=== PATIENT | female | born 1985 | race Caucasian/White ===

== ENCOUNTER 2018-01-10 12:00 | Outpatient (RCR) | payer OTHER, MEDICAID, SELFPAY ==
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
--- NOTE | 2017-09-07 15:15 | PT.OPPOC ---
Current Diagnoses Sacrococcygeal disorders, not elsewhere classified (09/07/17) Radiculopathy, lumbar region (09/07/17) Weakness (09/07/17) Provider Visit Care Team Role Provider Type Marisel Agudelo MD Attending Provider Physician Family Provider Primary Care Provider Specialty: Family Practice Address: [address] [place] [address], [id number] Email: Plan Of Care PT-OP-T Assessment and Plan Start: 09/07/17 18:17 Freq: Status: Active Protocol: Document 09/07/17 15:15 DCW (Rec: 09/08/17 12:44 DCW [id number]) Physical Therapy Assessment Rehab Potential Rehabilitation Potential Excellent Evaluation Complexity Number of Personal Factors/Comorbidities 1-2 Number of Body Systems Impaired 1-2 Clinical Presentation at Evaluation Stable Impairments Impairments Activity Tolerance Functional Activities Functional Mobility Posture Strength Tone Goals Four Impairment Core Strength Short Term Goal (STG) Pt to display 4/5 TrA strength STG Duration 10/05/17 Carousel Operator Goal (LTG) Pt to display 5/5 TrA strength LTG Duration 11/16/17 Three Impairment Pt lacks home exercise program Short Term Goal (STG) Pt independent and compliant with home exercise program STG Duration 10/05/17 Two Impairment Muscle Tone Short Term Goal (STG) Pt to display minimal tone in bilateral Piriformis STG Duration 10/05/17 One Impairment Activity Participation Usp Goal (LTG) Pt to return to lifting weights at gym with no complaints of instability LTG Duration 11/16/17 Assessment Summary Assessment Pt presents with signs and symptoms of core weakness and SI instability. Pt should progress quickly due to her not currently experiencing any low back pain, and should benefit from skilled therapy focusing on improving core strength, low back and SI stabilization, and body builder apprentice/posture training. Physical Therapy Plan Frequency and Duration Frequency of Treatment 2x/Week Duration of Treatment 10 weeks Plan of Care Start Date 09/07/17 Plan of Care End Date 11/16/17 Therapeutic Interventions Therapeutic Interventions Aquatic Therapy Home Exercise Program Joint Mobilizations Manual Therapy Neuromuscular Re-education Patient/Caregiver Education Self-Care/Home Management Soft Tissue Mobilization Therapeutic Activities Therapeutic Exercises Modalities Cold Pack/Ice Massage Electric Stimulation Hot Packs Ultrasound Next Visit Focus/Plan Next Note Type Treatment Note Next Visit Plan Core strengthening, SI stability,Posture training Plan of Care Dates Plan of Care Start Date 09/07/17 Plan of Care End Date 11/16/17 Please Sign and Return: I have reviewed this Plan of Care and certify that the skilled therapy services above are required to meet the patient?s needs. Physician Signature Date Printed Name and Credentials Clinical Instructor Signature Printed Name and Credentials
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
--- NOTE | 2017-12-03 15:24 | PT.OPPOC ---
Current Diagnoses Radiculopathy, lumbar region (12/03/17) Provider Visit Care Team Role Provider Type Marisel Agudelo MD Attending Provider Physician Family Provider Primary Care Provider Specialty: Family Practice Address: [address] [place] [address], [facility] Email: Plan Of Care PT-OP-T Assessment and Plan Start: 09/07/17 18:17 Freq: Status: Active Protocol: Document 12/03/17 09:48 LRN (Rec: 12/03/17 10:46 LRN [id number]) Physical Therapy Assessment Rehab Potential Rehabilitation Potential Excellent Evaluation Complexity Number of Personal Factors/Comorbidities 1-2 Number of Body Systems Impaired 1-2 Clinical Presentation at Evaluation Stable Impairments Impairments Activity Tolerance Strength Tone Goals Four Impairment Core Strength Short Term Goal (STG) Pt to display 4/5 TrA strength STG Duration GOAL MET Wellness Director Goal (LTG) Pt to display 5/5 TrA strength LTG Duration 02/04/18 Three Impairment Pt lacks home exercise program Short Term Goal (STG) Pt independent and compliant with home exercise program STG Duration 02/04/18 Two Impairment Muscle Tone Short Term Goal (STG) Pt to display minimal tone in bilateral Piriformis STG Duration GOAL MET One Impairment Activity Participation Short Term Goal (STG) Pt able to work without onset of back pain. Wellness Director Goal (LTG) Pt to return to lifting weights at gym with no complaints of instability LTG Duration 02/04/18 Assessment Summary Assessment Pt presents with much improved abdominal strength and no complaints of pain, only stiffness and a feeling of pressure. She is able to perform kettle ball lifting ex 's at home and can perform a lift movement. She has returned to gym ex's of yoga and pilates. 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 She is exercising and walking daily. Her biggest limitation is prolonged sitting tolerance. 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 Physical Therapy Plan Frequency and Duration Frequency of Treatment 2x/Week Plan of Care Start Date 12/03/17 Plan of Care End Date 02/04/18 Therapeutic Interventions Therapeutic Interventions Aquatic Therapy Home Exercise Program Joint Mobilizations Manual Therapy Neuromuscular Re-education Patient/Caregiver Education Self-Care/Home Management Soft Tissue Mobilization Therapeutic Activities Therapeutic Exercises Modalities Cold Pack/Ice Massage Electric Stimulation Hot Packs Ultrasound Next Visit Focus/Plan Next Note Type Treatment Note Next Visit Plan Sacral mob to correct a stuck R side, progress core strengthening and stabilization, and body mechanics training for her job . Plan of Care Dates Plan of Care Start Date 12/03/17 Plan of Care End Date 02/04/18 Please Sign and Return: I have reviewed this Plan of Care and certify that the skilled therapy services above are required to meet the patient?s needs. Physician Signature Date Printed Name and Credentials Clinical Instructor Signature Printed Name and Credentials
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
== END 2018-03-30 08:42 ==
LOC: PHYS 12:00
PROVIDERS: Family Provider Family Medicine; PCP Family Medicine; Visit Provider Family Medicine
DX: M54.16 Radiculopathy, lumbar region (principal)
CPT/HCPCS: 97110; 97112; 97140; 97161; 97530; 97535

== ENCOUNTER → 2023-12-08 12:47 | Outpatient (CLI) | payer OTHER, SELFPAY ==
--- NOTE | 2023-12-08 12:51 | DI.RAD.S_ITS ---
PROCEDURE: XR CHEST 2V INDICATIONS: Shortness of breath TECHNIQUE: 2 views of the chest were acquired. COMPARISON: None. FINDINGS: Surgical changes and devices: None. Lungs and pleura: Lungs are clear. No pleural effusions or pneumothorax. Mediastinum: Mediastinal contours are normal. Heart size is normal. Bones and chest wall: No suspicious bony abnormalities. Soft tissues appear unremarkable. IMPRESSION: No acute cardiopulmonary abnormality is seen. Approved by: Jason Neves M.D. on 12/08/2023 at 13:34
== END ==
PROVIDERS: Family Provider Family Medicine; PCP Family Medicine; Referring Provider Family Medicine; Visit Provider Family Medicine
DX: R06.02 Shortness of breath (principal)
CPT/HCPCS: 71046

== ENCOUNTER → 2024-03-23 14:31 | Outpatient (CLI) | payer OTHER, SELFPAY ==
--- NOTE | 2024-03-23 | DI.RAD.S_ITS ---
PROCEDURE: XR CHEST 2V INDICATIONS: SHORTNESS OF BREATH TECHNIQUE: 2 views of the chest were acquired. COMPARISON: [facility], , XR CHEST 2V, 12/08/2023, 12:52. FINDINGS: Heart, mediastinum and pulmonary vascular: Heart is normal in size and configuration. Mediastinum is unremarkable. Pulmonary vascular is normal. Lungs: Clear Pleural spaces: Normal-no effusions or pneumothorax. Bones and soft tissues: Normal IMPRESSION: Normal chest. Dictated by: Tanner Rice M.D. on 03/24/2024 at 10:26 Approved by: Tanner Rice M.D. on 03/24/2024 at 10:27
== END ==
PROVIDERS: Family Provider Family Medicine; PCP Family Medicine; Referring Provider Family Medicine; Visit Provider Family Medicine
DX: R06.02 Shortness of breath (principal)
CPT/HCPCS: 71046